=== PATIENT | female | born 1985 | race Hispanic/Latino ===

== ENCOUNTER 2018-02-14 15:00 | Emergency (ER) | payer MEDICAID ==
[2018-02-14 15:03] VITALS: BMI 39.5
[2018-02-14 15:05] VITALS: RESP 18; TEMP 98.9
--- NOTE | 2018-02-14 15:22 | ED PDOC ---
Arrival/HPI - General Chief Complaint: Lower Extremity Problem/Injury Time Seen by Provider: 02/14/18 15:16 Historian: Patient - History of Present Illness Narrative History of Present Illness (Text): 02/14/18 15:19 32 y/o, female, pmh including hypothyroidism/vitamin D deficiency, nkda, c/o lt. foot and sole pain x 1 week with no fall or trauma. Pt. stated that she started a new job, been standing alot, 4/10 pain, painful on the sole of the foot radiating to the left calf region, no low back pain, no urinary or bowel incontinence/retention, no rash, no urinary symptoms, no other medical or psychological complaints. Past Medical History - Provider Review Nursing Documentation Reviewed: Yes - Infectious Disease Hx of Infectious Diseases: None - Endocrine/Metabolic Hx Hypothyroidism: Yes - Psychiatric Hx Substance Use: No - Surgical History Other/Comment: back sx - Anesthesia Hx Anesthesia: Yes Hx Anesthesia Reactions: No Hx Malignant Hyperthermia: No Family/Social History - Physician Review Nursing Documentation Reviewed: Yes Family/Social History: Unknown Family HX Smoking Status: Never Smoked Hx Alcohol Use: No Hx Substance Use: No Allergies/Home Meds Allergies/Adverse Reactions: Allergies No Known Allergies Allergy (Verified 12/05/17 14:07) Home Medications: Home Meds Medication Instructions Recorded Confirmed Cholecalciferol (Vitamin D3) 2,000 unit PO DAILY 12/05/17 02/14/18 [Vitamin D3] Cyanocobalamin (Vitamin B-12) 1,000 mcg PO DAILY 12/05/17 02/14/18 [Vitamin B-12] Levothyroxine [Synthroid] 50 mcg PO DAILY 12/05/17 02/14/18 Review of Systems - Review of Systems Constitutional: absent: Fatigue, Fevers Eyes: absent: Vision Changes ENT: absent: Hearing Changes Respiratory: absent: SOB, Cough Cardiovascular: absent: Chest Pain Gastrointestinal: absent: Abdominal Pain, Nausea, Vomiting Musculoskeletal: Arthralgias, Myalgias. absent: Back Pain Skin: absent: Rash, Pruritis Neurological: absent: Headache, Dizziness Psychiatric: absent: Anxiety, Depression, Suicidal Ideation Physical Exam Vital Signs Reviewed: Yes Vital Signs Temp Pulse Resp BP Pulse Ox 02/14/18 17:34 80 18 127/74 99 02/14/18 15:05 98.9 F 95 H 18 118/75 98 Temperature: Afebrile Blood Pressure: Normal Pulse: Regular Respiratory Rate: Normal Appearance: Positive for: Well-Appearing, Non-Toxic, Comfortable Pain Distress: Mild Mental Status: Positive for: Alert and Oriented X 3 - Systems Exam Head: Present: Atraumatic, Normocephalic Pupils: Present: PERRL Extroacular Muscles: Present: EOMI Conjunctiva: Present: Normal Mouth: Present: Moist Mucous Membranes Neck: Present: Normal Range of Motion Respiratory/Chest: Present: Clear to Auscultation, Good Air Exchange. No: Respiratory Distress, Accessory Muscle Use Cardiovascular: Present: Regular Rate and Rhythm, Normal S1, S2. No: Murmurs Abdomen: No: Tenderness, Distention, Peritoneal Signs, Rebound, Guarding Back: Present: Normal Inspection. No: CVA Tenderness, Midline Tenderness, Paraspinal Tenderness, Pain with Leg Raise, Decubitus Ulcer Upper Extremity: Present: Normal Inspection. No: Cyanosis, Edema Lower Extremity: Present: Normal Inspection, Other (LLE: mild +ttp on the plantar aspect of the heel and mid foot, no bony tenderness, no erythematous, no cellulitis or streaking, no ulcers, FROM without limitation, sensation intact , motor 5/5 +DPPT pulses, capillary refill< 2 seconds, neurovascular intact. ). No: Edema Neurological: Present: GCS=15, CN II-XII Intact, Speech Normal Skin: Present: Warm, Dry, Normal Color. No: Rashes Psychiatric: Present: Alert, Oriented x 3, Normal Insight, Normal Concentration Medical Decision Making ED Course and Treatment: 02/14/18 15:24 -Lt. foot xray -LLE venuous doppler -motrin -observe and reassess -LLE Venuous doppler: as per preliminary report, no acute DVT -Lt. foot xray: no fracture or dislocation, +calcaneal spur noted. -Pain decreased, offered crutches but the patient declined, would change to the cane -Jack wrap applied with neurovascular intact. -Discharge home with motrin, cane, jack wrap, follow up with your own pmd and practice nurse within 2 days, return to [facility] ER for any new or worsening signs or symptoms. - RAD Interpretation Radiology Orders: 02/14/18 15:16 FOOT LEFT 3 VIEWS ROUTINE [RAD] Stat DUPLEX LOWER EXTRM VEIN LEFT [US] Stat Lt. foot xray: small calcaneal spur LLE Venuous doppler: as per preliminary report, no acute DVT PROCEDURE: Left lower extremity venous US HISTORY: Leg pain and swelling. Evaluate for DVT. PHYSICIAN(S): Grant Gordon MD. TECHNIQUE: Duplex sonography and color-flow Doppler with graded compression were used to evaluate the deep venous system of the left lower extremity. FINDINGS: The visualized deep venous system of the left lower extremity is sonographically normal and compressible. Normal wave forms and augmentation are seen. There is no sonographic evidence for deep venous thrombosis in the visualized segments of the left lower extremity. IMPRESSION: 1. No sonographic evidence for deep venous thrombosis in the visualized segments of the left lower extremity. In Home Baby Sitter: Radiologist - Medication Orders Current Medication Orders: Discontinued Medications Ibuprofen (Motrin Tab) 600 mg PO STAT STA Stop: 02/14/18 15:19 Last Admin: 02/14/18 15:29 Dose: 600 mg MAR Pain/Vitals Document 02/14/18 15:29 EQ (Rec: 02/14/18 15:29 EQ [id number]) Pain Reassessment Is This A Pain ReAssessment? No Sleep Is patient sleeping during reassessment? No Presence of Pain Presence of Pain Yes - PA / [employer] / Resident Statement /DO has reviewed & agrees with the documentation as recorded. Disposition/Present on Arrival - Present on Arrival Any Indicators Present on Arrival: No History of DVT/PE: No History of Uncontrolled Diabetes: No Urinary Catheter: No History of Decub. Ulcer: No History Surgical Site Infection Following: None - Disposition Have Diagnosis and Disposition been Completed?: Yes Diagnosis: Heel spur, Plantar fasciitis Disposition: HOME/ ROUTINE Disposition Time: 15:25 Patient Plan: Discharge Condition: GOOD Discharge Instructions (ExitCare): Heel Pain (Caused by Plantar Fasciitis), Heel Spurs Additional Instructions: -Discharge home with motrin, cane, jack wrap, follow up with your own pmd and practice nurse within 2 days, return to [facility] ER for any new or worsening signs or symptoms. Prescriptions: Ibuprofen [Motrin] 600 mg PO QID PRN #30 tab PRN Reason: Other Referrals: Raj Olmos MD [Primary Care Provider] - Follow up with primary Marky Craft DPM [Staff Provider] - Follow up with primary Forms: WORK NOTE
--- NOTE | 2018-02-14 17:30 | US ---
PROCEDURE: Left lower extremity venous US HISTORY: Leg pain and swelling. Evaluate for DVT. PHYSICIAN(S): Grant Gordon MD. TECHNIQUE: Duplex sonography and color-flow Doppler with graded compression were used to evaluate the deep venous system of the left lower extremity. FINDINGS: The visualized deep venous system of the left lower extremity is sonographically normal and compressible. Normal wave forms and augmentation are seen. There is no sonographic evidence for deep venous thrombosis in the visualized segments of the left lower extremity. IMPRESSION: 1. No sonographic evidence for deep venous thrombosis in the visualized segments of the left lower extremity.
[2018-02-14 17:36] VITALS: BP 127/74; PULSE 80; O2SAT 99
--- NOTE | 2018-02-15 09:47 | RAD ---
PROCEDURE: Left Foot Radiographs. HISTORY: lt. foot sole pain COMPARISON: None. FINDINGS: BONES: Normal. No fracture. JOINTS: Normal. SOFT TISSUES: Normal. OTHER FINDINGS: Small plantar calcaneal spur IMPRESSION: Small calcaneal spur
== END 2018-02-14 17:34 | disposition home or self-care (01) ==
LOC: ED 15:00
DX: M72.2 Plantar fascial fibromatosis (principal); M77.32 Calcaneal spur, left foot; E03.9 Hypothyroidism, unspecified